=== PATIENT | male | born 1990 | race African-American/Black ===

== ENCOUNTER 2017-08-13 11:13 | Emergency (ER) | payer SELFPAY ==
[~2017-08-13] VITALS: Ht 182.9 cm; Wt 80.7 kg
[2017-08-13 11:20] VITALS: BP 148/86
== END 2017-08-13 13:28 | disposition home or self-care (01) ==
LOC: ER 11:18
DX: F41.9 Anxiety disorder, unspecified (principal); F10.10 Alcohol abuse, uncomplicated; F14.10 Cocaine abuse, uncomplicated
CPT/HCPCS: 71045; 93005; 99284; A4606; Z7610